=== PATIENT | female | born 1975 | race Hispanic/Latino ===

== ENCOUNTER 2023-01-21 13:58 | Emergency (ER) | payer SELFPAY | END 2023-01-21 14:55 | disposition home or self-care (01) | LOC: MADERS 13:58 | DX: S80.11XA Contusion of right lower leg, initial encounter (principal); E11.9 Type 2 diabetes mellitus without complications; I10 Essential (primary) hypertension; E66.9 Obesity, unspecified; F17.210 Nicotine dependence, cigarettes, uncomplicated; Z79.84 Long term (current) use of oral hypoglycemic drugs; Z79.899 Other long term (current) drug therapy; W18.30XA Fall on same level, unspecified, initial encounter ==

== ENCOUNTER 2023-09-05 15:56 | Emergency (ER) | payer OTHER, SELFPAY | END 2023-09-05 16:30 | disposition home or self-care (01) | LOC: MADERS 15:56 | DX: K05.00 Acute gingivitis, plaque induced (principal); E11.9 Type 2 diabetes mellitus without complications; I10 Essential (primary) hypertension; E66.9 Obesity, unspecified; Z87.891 Personal history of nicotine dependence; Z79.899 Other long term (current) drug therapy; Z79.84 Long term (current) use of oral hypoglycemic drugs | CPT/HCPCS: 99282 ==

== ENCOUNTER 2024-01-04 20:23 | Emergency (ER) | payer SELFPAY ==
[2024-01-04] MEDS ORDERED: Penicillin V Potassium 250 MG TAB ONE (20:28)
[2024-01-04] MEDS ORDERED: HYDROcodone/Acetaminophen 5/325 mg Tablet ONE (20:38)
== END 2024-01-04 21:00 | disposition home or self-care (01) ==
LOC: MADERS 20:23
DX: K02.9 Dental caries, unspecified (principal); K04.7 Periapical abscess without sinus; I10 Essential (primary) hypertension; E11.9 Type 2 diabetes mellitus without complications; F17.290 Nicotine dependence, other tobacco product, uncomplicated; Z79.899 Other long term (current) drug therapy; Z79.84 Long term (current) use of oral hypoglycemic drugs
CPT/HCPCS: 99283

== ENCOUNTER 2024-02-11 13:56 | Emergency (ER) | payer SELFPAY ==
[2024-02-11 14:36] LABS: #Basophils 0.1 thou/uL (0.0-0.2); #Eosinophils 0.1 thou/uL (0.0-0.7); #Lymphocytes 2.2 thou/uL (1.20-3.40); #Monocytes 0.5 thou/uL (0.11-0.59); #Neutrophils 7.5 thou/uL (1.40-6.50); %Basophils 0.6 % (0.0-1.0); %Lymphocytes 21.5 % (21.0-51.0); %Monocytes 4.5 % (0.0-10.0); %Neutrophils 72.4 % (42.0-75.0); Hematocrit 42.1 % (36.0-47.0); Mean Corpuscular Hemoglobin 28.6 pg (27.0-31.0); Mean Corpuscular Volume 92.4 fl (78.0-98.0); Mean Platelet Volume 7.4 fL (7.4-10.4); Platelet Count 463 10x3/uL (130-400); RBC Distribution Width 14.2 % (11.5-14.5); Red Blood Cell (RBC) Count 4.55 mill/uL (4.20-5.40); White Blood Cell (WBC) Count 10.4 10x3/uL (4.8-10.8)
[2024-02-11 14:51] LABS: ALT (SGPT) 24 U/L (8-55); AST (SGOT) 26 U/L (5-34); Alkaline Phosphatase 119 U/L (40-110); Anion Gap 17 mmol/L (10-20); BUN (Urea Nitrogen) 12 mg/dL (7.0-18.7); Bilirubin, Total 0.4 mg/dL (0.2-1.2); Calc. Creatinine Clearance 0 mL/min (70-130); Calcium 9.7 mg/dL (7.8-10.44); Carbon Dioxide 19 mmol/L (22-29); Chloride 100 mmol/L (98-107); Estimated GFR 65; Globulin 4.4 g/dL (2.4-3.5); Glucose 356 mg/dL (70-105); Potassium 4.6 mmol/L (3.5-5.1); Protein, Total 8.4 g/dL (6.0-8.3); Sodium 131 mmol/L (136-145); Troponin I Less than 0.010 ng/mL (< 0.028)
== END 2024-02-11 15:10 | disposition home or self-care (01) ==
LOC: MADERS 13:56
DX: K04.7 Periapical abscess without sinus (principal); R07.9 Chest pain, unspecified; I10 Essential (primary) hypertension; E11.9 Type 2 diabetes mellitus without complications; F17.290 Nicotine dependence, other tobacco product, uncomplicated; Z55.6 Problems related to health literacy
CPT/HCPCS: 36415; 71045; 80053; 84484; 85025; 93005